=== PATIENT | male | born 1970 | race Two or more races ===

== ENCOUNTER 2021-11-19 11:01 | Emergency (ER) | payer OTHER ==
[~2021-11-19] VITALS: Ht 170.2 cm; Wt 64.9 kg
[2021-11-19] MEDS ORDERED: LACTATED RINGERS 1000ML 1,000 ML IV ONE (11:30)
[2021-11-19 11:34] LABS: BASOPHILS % (AUTO) 0.4 % (0.0-5.0); EOSINOPHILS % (AUTO) 0.5 % (0.0-8.0); HEMATOCRIT 45.5 % (42-54); LYMPHOCYTES % (AUTO) 26.9 % (21.0-51.0); MEAN CORPUSCULAR HEMOGLOBIN 31.1 pg (27.0-33.0); MEAN CORPUSCULAR HGB CONC 34.3 g/dL (32.0-36.0); MEAN CORPUSCULAR VOLUME 90.6 fL (79-99); MONOCYTES % (AUTO) 11.3 % (3.0-13.0); NEUTROPHILS % (AUTO) 60.6 % (40.0-77.0); PLATELET COUNT (AUTO) 314 K/uL (130-400); RED BLOOD CELL COUNT(AUTO) 5.02 MIL/uL (4.50-6.20); RED CELL DISTRIBUTION WIDTH 13.8 % (11.0-15.5); WHITE BLOOD COUNT (AUTO) 9.5 K/uL (4.8-10.8)
[2021-11-19 11:46] LABS: CREATININE 0.8 mg/dL (0.5-1.5)
[2021-11-19 11:51] LABS: ALBUMIN 3.8 g/dL (3.5-5.0); BILIRUBIN,TOTAL 0.4 mg/dL (0.2-1.0); TOTAL PROTEIN, SERUM 7.3 g/dL (6.0-8.3)
[2021-11-19] MEDS ORDERED: PANTOPRAZOLE 40 MG/VIAL IVP ONE (13:00)
[2021-11-19] MEDS ORDERED: PANT40TA55 PO (13:20)
[2021-11-19 14:00] VITALS: BP 133/65
== END 2021-11-19 14:15 | disposition home or self-care (01) ==
LOC: EDH 11:01
DX: K29.70 Gastritis, unspecified, without bleeding (principal); K21.9 Gastro-esophageal reflux disease without esophagitis; F17.200 Nicotine dependence, unspecified, uncomplicated
CPT/HCPCS: 36415; 80053; 82550; 83690; 84484; 85025; 93005; 96374; 96361; 99284; C9113; J7120